=== PATIENT | male | born 1970 | race Hispanic/Latino ===

== ENCOUNTER 2022-12-30 18:10 | Inpatient (IN) | payer BC ==
[2022-12-30 19:15] LABS: Critical Call w/ Read Back NUR.DP6; Hemoglobin 3.6 g/dL (14.0-18.0); Mean Corpuscular HGB CONC 32.3 g/dL (32.0-36.0); Mean Corpuscular Hemoglobin 33.6 pg (27.0-31.0); Mean Platelet Volume 6.9 fL (7.4-10.4); Platelet Count 139 10x3/uL (130-400); RBC Distribution Width 17.3 % (11.5-14.5); Red Blood Cell (RBC) Count 1.07 mill/uL (4.70-6.10); Reflex for Review?? YES; White Blood Cell (WBC) Count 13.2 10x3/uL (4.8-10.8)
[2022-12-30 19:17] LABS: #Lymphocytes 0.9 thou/uL (1.20-3.40); #Neutrophils 11.3 thou/uL (1.40-6.50); %Eosinophils 0.4 % (0.0-10.0); %Lymphocytes 6.9 % (21.0-51.0); %Monocytes 7.4 % (0.0-10.0); %Neutrophils 85.4 % (42.0-75.0)
[2022-12-30 19:25] LABS: ALT (SGPT) 13 U/L (8-55); AST (SGOT) 15 U/L (5-34); Albumin 3.3 g/dL (3.5-5.0); Alkaline Phosphatase 107 U/L (40-110); Anion Gap 13 mmol/L (10-20); BUN (Urea Nitrogen) 40 mg/dL (8.4-25.7); Bilirubin, Total 0.2 mg/dL (0.2-1.2); Calc. Creatinine Clearance 0 mL/min (70-130); Calcium 7.9 mg/dL (7.8-10.44); Carbon Dioxide 23 mmol/L (22-29); Chloride 106 mmol/L (98-107); Estimated GFR 100; Globulin 2.6 g/dL (2.4-3.5); Glucose 169 mg/dL (70-105); Potassium 4.6 mmol/L (3.5-5.1); Protein, Total 5.9 g/dL (6.0-8.3); Sodium 137 mmol/L (136-145)
[2022-12-30 19:28] LABS: MDiff Complete? YES; Macrocytosis SLIGHT = 6-15 cells (100X) (0-5/hpf); Ovalocytes SLIGHT = 2-5 cells (100X) (0-1/hpf); Platelet Morphology Comment Appears Adequate; Polychromasia SLIGHT = 2-3 cells (100X) (0-2/hpf)
[2022-12-30] MEDS ORDERED: Morphine 4 MG/ML VIAL ONE (19:58)
[2022-12-30 20:30] LABS: INR-International Normal Ratio 1.1; Prothrombin Time 14.9 sec (12.0-14.7)
[2022-12-30 20:31] LABS: PTT 30.3 sec (22.9-36.1)
[2022-12-30] MEDS ORDERED: hydrALAZINE 20 MG/ML VIAL SLOW IVP PRN (20:33)
[2022-12-30] MEDS ORDERED: Dextrose 50% Abboject 50 ML SYRINGE SLOW IVP PRN (20:33)
[2022-12-30] MEDS ORDERED: TETANUS, DIPHTHERIA TOX,ADULT (TDVAX) 0.5 ML VIAL IM ONE (20:33)
[2022-12-30] MEDS ORDERED: Dextrose 5% in Water 1,000 ML IV PRN (20:33)
[2022-12-30] MEDS ORDERED: Ondansetron PF 4 MG/2 ML Vial IVP PRN (20:33)
[2022-12-30 20:35] LABS: Magnesium 1.8 mg/dL (1.6-2.6)
[2022-12-30 20:39] LABS: #Lymphocytes 0.9 thou/uL (1.20-3.40); #Monocytes 0.8 thou/uL (0.11-0.59); #Neutrophils 13.8 thou/uL (1.40-6.50); %Eosinophils 0.2 % (0.0-10.0); %Lymphocytes 5.6 % (21.0-51.0); %Monocytes 5.3 % (0.0-10.0); %Neutrophils 88.9 % (42.0-75.0); Hemoglobin 3.9 g/dL (14.0-18.0); Mean Corpuscular HGB CONC 32.1 g/dL (32.0-36.0); Mean Corpuscular Hemoglobin 33.5 pg (27.0-31.0); Platelet Count 164 10x3/uL (130-400); RBC Distribution Width 17.4 % (11.5-14.5); Red Blood Cell (RBC) Count 1.15 mill/uL (4.70-6.10); White Blood Cell (WBC) Count 15.5 10x3/uL (4.8-10.8)
[2022-12-30] MEDS ORDERED: Sodium Phosphate 15 MMOL in Sodium Chloride 0.9% 250 ML 250 ML IVPB SCH (20:45)
[2022-12-30] MEDS ORDERED: Magnesium 2 GM/50 ML(in water) 2 GM in Premix Bag 1 BAG IVPB SCH (20:45)
[2022-12-30] MEDS ORDERED: Pantoprazole 80 MG in Sodium Chloride 0.9% 100 ML IVPB SCH (20:45)
[2022-12-31] MEDS ORDERED: Magnesium 2 GM/50 ML BAG (IN WATER) ONE (00:07)
[2022-12-31] MEDS ORDERED: Boostrix 0.5 ML (Tdap) VIAL (>/=7 yrs of age) ONE (00:13)
[2022-12-31] MEDS: Sodium Chloride 0.9% 1,000 ML IV SCH ×4 (00:33→21:17)
[2022-12-31] MEDS ORDERED: Pantoprazole 80 MG in Sodium Chloride 0.9% 100 ML IVPB SCH (00:45)
[2022-12-31 01:49] LABS: #Lymphocytes 0.9 thou/uL (1.20-3.40); #Monocytes 1.1 thou/uL (0.11-0.59); #Neutrophils 13.3 thou/uL (1.40-6.50); %Basophils 0.1 % (0.0-1.0); %Eosinophils 0.1 % (0.0-10.0); %Lymphocytes 5.7 % (21.0-51.0); %Monocytes 7.3 % (0.0-10.0); %Neutrophils 86.8 % (42.0-75.0); Hemoglobin 5.9 g/dL (14.0-18.0); Mean Corpuscular HGB CONC 33.5 g/dL (32.0-36.0); Mean Corpuscular Hemoglobin 32.8 pg (27.0-31.0); Mean Corpuscular Volume 97.9 fl (78.0-98.0); Platelet Count 123 10x3/uL (130-400); RBC Distribution Width 15.9 % (11.5-14.5); Red Blood Cell (RBC) Count 1.79 mill/uL (4.70-6.10); White Blood Cell (WBC) Count 15.3 10x3/uL (4.8-10.8)
[2022-12-31 06:12] LABS: Amphetamine Not Detected (NotDetected); Barbiturates Screen Not Detected (NotDetected); Benzodiazepine Screen Not Detected (NotDetected); Cocaine Metabolite Screen Not Detected (NotDetected); Methadone Not Detected (NotDetected); Methamphetamine Not Detected (NotDetected); Opiate Screen Detected (NotDetected); Oxycodone Screen Not Detected (NotDetected); Phencyclidine (PCP) Not Detected (NotDetected); THC/Cannabinoid Screen Not Detected (NotDetected); Tricyclic Screen Not Detected (NotDetected)
[2022-12-31] MEDS: Fentanyl 100 MCG/2 ML VIAL SLOW IVP PRN ×2 (07:25→20:43)
[2022-12-31 07:47] LABS: Anion Gap 12 mmol/L (10-20); BUN (Urea Nitrogen) 34 mg/dL (8.4-25.7); Calc. Creatinine Clearance 134 mL/min (70-130); Calcium 7.6 mg/dL (7.8-10.44); Carbon Dioxide 21 mmol/L (22-29); Chloride 108 mmol/L (98-107); Estimated GFR 107; Glucose 123 mg/dL (70-105); Magnesium 2.1 mg/dL (1.6-2.6); Phosphorus 3.6 mg/dL (2.3-4.7); Sodium 137 mmol/L (136-145)
[2022-12-31 08:34] LABS: #Lymphocytes 0.9 thou/uL (1.20-3.40); #Monocytes 1.1 thou/uL (0.11-0.59); #Neutrophils 12.9 thou/uL (1.40-6.50); %Basophils 0.1 % (0.0-1.0); %Eosinophils 0.2 % (0.0-10.0); %Lymphocytes 6.3 % (21.0-51.0); %Monocytes 7.5 % (0.0-10.0); Hemoglobin 6.6 g/dL (14.0-18.0); Mean Corpuscular HGB CONC 33.8 g/dL (32.0-36.0); Mean Corpuscular Hemoglobin 32.4 pg (27.0-31.0); Mean Corpuscular Volume 95.9 fl (78.0-98.0); Mean Platelet Volume 7.1 fL (7.4-10.4); Platelet Count 118 10x3/uL (130-400); RBC Distribution Width 15.9 % (11.5-14.5); Red Blood Cell (RBC) Count 2.04 mill/uL (4.70-6.10)
[2022-12-31] MEDS ORDERED: PROPOFOL 200 MG/20 ML VIAL ONE (12:50)
[2022-12-31] MEDS ORDERED: Fentanyl 100 MCG/2 ML VIAL ONE (13:28)
[2022-12-31 15:22] LABS: Hemoglobin 7.7 g/dL (14.0-18.0); Mean Corpuscular HGB CONC 34.8 g/dL (32.0-36.0); Mean Corpuscular Hemoglobin 32.7 pg (27.0-31.0); Mean Corpuscular Volume 93.8 fl (78.0-98.0); Mean Platelet Volume 7.1 fL (7.4-10.4); Platelet Count 120 10x3/uL (130-400); Red Blood Cell (RBC) Count 2.37 mill/uL (4.70-6.10); White Blood Cell (WBC) Count 12.6 10x3/uL (4.8-10.8)
[2022-12-31] MEDS: Pantoprazole 40 MG VIAL IVP SCH (20:43)
[2023-01-01 03:48] LABS: #Eosinphils 0.1 thou/uL (0.0-0.7); #Lymphocytes 0.8 thou/uL (1.20-3.40); #Neutrophils 14.4 thou/uL (1.40-6.50); %Basophils 0.1 % (0.0-1.0); %Eosinophils 0.4 % (0.0-10.0); %Lymphocytes 4.8 % (21.0-51.0); %Monocytes 6.1 % (0.0-10.0); %Neutrophils 88.6 % (42.0-75.0); Hemoglobin 7.8 g/dL (14.0-18.0); Mean Corpuscular HGB CONC 35.3 g/dL (32.0-36.0); Mean Corpuscular Hemoglobin 33.3 pg (27.0-31.0); Mean Corpuscular Volume 94.5 fl (78.0-98.0); Mean Platelet Volume 7.1 fL (7.4-10.4); Platelet Count 112 10x3/uL (130-400); RBC Distribution Width 17.6 % (11.5-14.5); Red Blood Cell (RBC) Count 2.34 mill/uL (4.70-6.10); White Blood Cell (WBC) Count 16.3 10x3/uL (4.8-10.8)
[2023-01-01 04:18] LABS: Anion Gap 11 mmol/L (10-20); BUN (Urea Nitrogen) 19 mg/dL (8.4-25.7); Calc. Creatinine Clearance 151 mL/min (70-130); Calcium 7.6 mg/dL (7.8-10.44); Carbon Dioxide 22 mmol/L (22-29); Chloride 108 mmol/L (98-107); Estimated GFR 111; Glucose 120 mg/dL (70-105); Magnesium 1.8 mg/dL (1.6-2.6); Phosphorus 2.8 mg/dL (2.3-4.7); Potassium 3.9 mmol/L (3.5-5.1); Sodium 137 mmol/L (136-145)
[2023-01-01 06:20] LABS: SARS-CoV-2 NAA Rapid Test DETECTED (NotDetected)
[2023-01-01] MEDS: Sodium Chloride 0.9% 1,000 ML IV SCH (07:00)
[2023-01-01] MEDS: Levothyroxine Sodium 25 MCG TAB PO SCH (07:02)
[2023-01-01] MEDS: Levothyroxine Sodium 100 MCG TAB PO SCH (07:02)
[2023-01-01] MEDS ORDERED: Magnesium 2 GM/50 ML(in water) 2 GM in Premix Bag 1 BAG IVPB SCH (07:15)
[2023-01-01] MEDS: Fentanyl 100 MCG/2 ML VIAL SLOW IVP PRN (07:33)
[2023-01-01 07:50] VITALS: BMI 30.9
[2023-01-01] MEDS: Pantoprazole 40 MG VIAL IVP SCH ×2 (08:09→22:24)
[2023-01-01] MEDS: Ferrous Sulfate 325 MG TAB PO SCH ×2 (08:09→17:00)
[2023-01-01] MEDS: Ascorbic Acid 500 mg Chewable Tablet PO SCH ×2 (08:09→22:22)
[2023-01-01] MEDS ORDERED: Potassium Phosphate 30 MMOL, Magnesium Sulfate 2 GM in Sodium Chloride 0.9% 250 ML IVPB SCH (09:00)
[2023-01-01] MEDS ORDERED: Bupivacaine PF 0.5% 30 ML VIAL ONE (11:59)
[2023-01-01] MEDS ORDERED: Fentanyl 250 MCG/5 ML VIAL ONE (11:59)
[2023-01-01] MEDS ORDERED: Midazolam HCl 2 mg/2 ml Vial ONE (11:59)
[2023-01-01] MEDS ORDERED: Dexamethasone 4 mg/ml Vial ONE (12:00)
[2023-01-01] MEDS ORDERED: CEFAZOLIN 2 GM in Sodium Chloride 0.9% 100 ML IVPB SCH (12:30)
[2023-01-01] MEDS ORDERED: fentaNYL PF 100 MCG/2 ML SYRINGE ONE ×2 (14:22→17:25)
[2023-01-01] MEDS ORDERED: Rocuronium Bromide 10 MG/ML (10ML VIAL) ONE (14:58)
[2023-01-01] MEDS ORDERED: PROPOFOL 200 MG/20 ML VIAL ONE (14:58)
[2023-01-01] MEDS ORDERED: Glycopyrrolate 0.2 MG/ML 5 ML SYRINGE ONE (14:58)
[2023-01-01] MEDS ORDERED: PHENYLEPHRINE-NS 100 MCG/ML 10 ML SYRINGE ONE (14:58)
[2023-01-01] MEDS ORDERED: NEOSTIGMINE 3 MG/3 ML SYR 3 MG/3 ML SYRINGE ONE (14:58)
[2023-01-01] MEDS ORDERED: Morphine 4 MG/ML VIAL SLOW IVP PRN (20:04)
[2023-01-01] MEDS: Senokot S 8.6-50 MG TAB PO SCH (22:22)
[2023-01-01] MEDS: CEFAZOLIN 2 GM in Sodium Chloride 0.9% 100 ML IVPB SCH (22:22)
[2023-01-01] MEDS: traMADol HCl 50 MG TAB PO PRN (22:23)
[2023-01-01] MEDS: Acetaminophen 500 MG TAB PO SCH (22:23)
[2023-01-02] MEDS: Pantoprazole 40 MG VIAL IVP SCH ×3 (01:12→21:39)
[2023-01-02] MEDS: Sodium Chloride 0.9% 1,000 ML IV SCH (01:13)
[2023-01-02] MEDS: Acetaminophen 500 MG TAB PO SCH ×4 (03:37→21:30)
[2023-01-02] MEDS: Cyclobenzaprine 10 MG TAB PO PRN ×2 (03:38→09:36)
[2023-01-02] MEDS: Levothyroxine Sodium 100 MCG TAB PO SCH (05:15)
[2023-01-02] MEDS: traMADol HCl 50 MG TAB PO PRN (05:16)
[2023-01-02] MEDS: Levothyroxine Sodium 25 MCG TAB PO SCH (05:16)
[2023-01-02] MEDS: CEFAZOLIN 2 GM in Sodium Chloride 0.9% 100 ML IVPB SCH ×2 (05:17→14:54)
[2023-01-02 06:24] LABS: #Eosinphils 0.1 thou/uL (0.0-0.7); #Lymphocytes 0.7 thou/uL (1.20-3.40); %Eosinophils 0.5 % (0.0-10.0); %Lymphocytes 3.6 % (21.0-51.0); %Monocytes 5.1 % (0.0-10.0); %Neutrophils 90.7 % (42.0-75.0); Hemoglobin 7.2 g/dL (14.0-18.0); Mean Corpuscular HGB CONC 31.9 g/dL (32.0-36.0); Mean Corpuscular Hemoglobin 30.8 pg (27.0-31.0); Mean Corpuscular Volume 96.3 fl (78.0-98.0); Mean Platelet Volume 7.8 fL (7.4-10.4); Platelet Count 126 10x3/uL (130-400); RBC Distribution Width 17.5 % (11.5-14.5); Red Blood Cell (RBC) Count 2.33 mill/uL (4.70-6.10); White Blood Cell (WBC) Count 18.7 10x3/uL (4.8-10.8)
[2023-01-02 06:51] LABS: Anion Gap 11 mmol/L (10-20); BUN (Urea Nitrogen) 12 mg/dL (8.4-25.7); Calcium 7.6 mg/dL (7.8-10.44); Carbon Dioxide 24 mmol/L (22-29); Chloride 102 mmol/L (98-107); Glucose 111 mg/dL (70-105); Magnesium 1.8 mg/dL (1.6-2.6); Potassium 3.9 mmol/L (3.5-5.1); Sodium 133 mmol/L (136-145)
[2023-01-02 07:02] LABS: Calc. Creatinine Clearance 153 mL/min (70-130); Estimated GFR 111
[2023-01-02] MEDS: Ascorbic Acid 500 mg Chewable Tablet PO SCH ×2 (08:37→21:30)
[2023-01-02] MEDS: Ferrous Sulfate 325 MG TAB PO SCH ×2 (08:37→17:10)
[2023-01-02] MEDS: Senokot S 8.6-50 MG TAB PO SCH ×2 (08:37→21:30)
[2023-01-02] MEDS: Polyethylene Glycol 3350 17 GM Packet PO SCH (08:49)
[2023-01-02] MEDS: Aspirin 81 mg Enteric Coated Tablet PO SCH ×2 (08:49→21:30)
[2023-01-02] MEDS: Insulin Regular 300 UNITS/3 ML VIAL SC PRN ×2 (12:04→18:16)
[2023-01-03] MEDS: Acetaminophen 500 MG TAB PO SCH ×4 (03:04→20:34)
[2023-01-03] MEDS ORDERED: FLU VACC QS2022-23(6MOS UP)/PF 60 MCG/0.5 ML SYRINGE IM ONE (03:45)
[2023-01-03] MEDS: Levothyroxine Sodium 25 MCG TAB PO SCH (05:32)
[2023-01-03] MEDS: Levothyroxine Sodium 100 MCG TAB PO SCH (05:32)
[2023-01-03 06:12] LABS: #Eosinphils 0.1 thou/uL (0.0-0.7); #Lymphocytes 0.8 thou/uL (1.20-3.40); #Monocytes 0.8 thou/uL (0.11-0.59); #Neutrophils 12.4 thou/uL (1.40-6.50); %Basophils 0.1 % (0.0-1.0); %Eosinophils 0.9 % (0.0-10.0); %Lymphocytes 5.7 % (21.0-51.0); %Monocytes 5.4 % (0.0-10.0); Hemoglobin 6.7 g/dL (14.0-18.0); Mean Corpuscular HGB CONC 32.6 g/dL (32.0-36.0); Mean Corpuscular Hemoglobin 31.7 pg (27.0-31.0); Mean Corpuscular Volume 97.1 fl (78.0-98.0); Mean Platelet Volume 7.5 fL (7.4-10.4); Platelet Count 162 10x3/uL (130-400); Red Blood Cell (RBC) Count 2.11 mill/uL (4.70-6.10); White Blood Cell (WBC) Count 14.1 10x3/uL (4.8-10.8)
[2023-01-03 07:52] LABS: Hemoglobin 7.1 g/dL (14.0-18.0)
[2023-01-03] MEDS: traMADol HCl 50 MG TAB PO PRN ×3 (09:13→21:25)
[2023-01-03] MEDS: Pantoprazole 40 MG VIAL IVP SCH ×2 (09:14→20:34)
[2023-01-03] MEDS: Ascorbic Acid 500 mg Chewable Tablet PO SCH ×2 (09:15→20:34)
[2023-01-03] MEDS: Aspirin 81 mg Enteric Coated Tablet PO SCH ×2 (09:16→20:34)
[2023-01-03] MEDS: Ferrous Sulfate 325 MG TAB PO SCH ×2 (09:16→18:03)
[2023-01-03] MEDS: Senokot S 8.6-50 MG TAB PO SCH ×2 (09:16→20:35)
[2023-01-03] MEDS: Polyethylene Glycol 3350 17 GM Packet PO SCH (09:16)
[2023-01-03] MEDS: Insulin Regular 300 UNITS/3 ML VIAL SC PRN (12:32)
[2023-01-04] MEDS: Acetaminophen 500 MG TAB PO SCH ×4 (03:06→20:57)
[2023-01-04] MEDS: Levothyroxine Sodium 25 MCG TAB PO SCH (05:03)
[2023-01-04] MEDS: Levothyroxine Sodium 100 MCG TAB PO SCH (05:03)
[2023-01-04 06:54] LABS: Hemoglobin 6.8 g/dL (14.0-18.0)
[2023-01-04] MEDS: Ferrous Sulfate 325 MG TAB PO SCH ×2 (08:42→17:39)
[2023-01-04] MEDS: Senokot S 8.6-50 MG TAB PO SCH ×2 (08:42→20:50)
[2023-01-04] MEDS: Aspirin 81 mg Enteric Coated Tablet PO SCH ×2 (08:42→20:50)
[2023-01-04] MEDS: Pantoprazole 40 MG VIAL IVP SCH ×2 (08:43→20:51)
[2023-01-04] MEDS: Polyethylene Glycol 3350 17 GM Packet PO SCH (08:43)
[2023-01-04] MEDS: Ascorbic Acid 500 mg Chewable Tablet PO SCH ×2 (08:43→20:51)
[2023-01-04] MEDS: traMADol HCl 50 MG TAB PO PRN ×2 (09:10→14:41)
[2023-01-04] MEDS: Cyclobenzaprine 10 MG TAB PO PRN (17:41)
[2023-01-05] MEDS: Acetaminophen 500 MG TAB PO SCH ×4 (06:11→19:59)
[2023-01-05] MEDS: Levothyroxine Sodium 100 MCG TAB PO SCH (06:26)
[2023-01-05] MEDS: Levothyroxine Sodium 25 MCG TAB PO SCH (06:27)
[2023-01-05] MEDS: Aspirin 81 mg Enteric Coated Tablet PO SCH ×2 (08:06→20:00)
[2023-01-05] MEDS: Ferrous Sulfate 325 MG TAB PO SCH ×2 (08:06→17:48)
[2023-01-05] MEDS: traMADol HCl 50 MG TAB PO PRN ×2 (08:07→17:48)
[2023-01-05] MEDS: Ascorbic Acid 500 mg Chewable Tablet PO SCH ×2 (08:07→20:00)
[2023-01-05] MEDS: Senokot S 8.6-50 MG TAB PO SCH ×2 (08:08→20:00)
[2023-01-05] MEDS: Polyethylene Glycol 3350 17 GM Packet PO SCH (08:08)
[2023-01-05] MEDS: Pantoprazole 40 MG VIAL IVP SCH ×2 (08:08→20:00)
[2023-01-05] MEDS: Cyclobenzaprine 10 MG TAB PO PRN (15:04)
[2023-01-05 20:07] VITALS: BP 121/75; TEMP 98.5
== END 2023-01-05 20:50 | DRG 480 ==
LOC: ERS 18:10 → ERHOLD 20:37 → CCU 12-31 01:43 → SURG B 01-01 17:29
PROVIDERS: ADMIT Surgery; ATTEND Surgery
PROC: 30233N1 Transfusion of Nonautologous Red Blood Cells into Peripheral Vein, Percutaneous Approach (ICD-10-PCS; 2022-12-30)
PROC: 0W3P8ZZ Control Bleeding in Gastrointestinal Tract, Via Natural or Artificial Opening Endoscopic (ICD-10-PCS; 2022-12-31)
PROC: 0DB48ZX Excision of Esophagogastric Junction, Via Natural or Artificial Opening Endoscopic, Diagnostic (ICD-10-PCS; 2022-12-31)
PROC: 0QS704Z Reposition Left Upper Femur with Internal Fixation Device, Open Approach (ICD-10-PCS; principal; 2023-01-01)
PROC: 8E0ZXY6 Isolation (ICD-10-PCS; 2023-01-01)
DX: S72.142A Displaced intertrochanteric fracture of left femur, initial encounter for closed fracture (principal); Z20.822 Contact with and (suspected) exposure to COVID-19; Z23 Encounter for immunization; K22.11 Ulcer of esophagus with bleeding; U07.1 COVID-19; D62 Acute posthemorrhagic anemia; C15.5 Malignant neoplasm of lower third of esophagus; I10 Essential (primary) hypertension; E11.9 Type 2 diabetes mellitus without complications; R29.6 Repeated falls; W18.30XA Fall on same level, unspecified, initial encounter; Z91.81 History of falling; Z79.899 Other long term (current) drug therapy; Z79.890 Hormone replacement therapy
CPT/HCPCS: 36415; 36416; 36430; 71045; 80048; 80053; 80306; 80307; 83735; 84100; 85014; 85018; 85025; 85060; 85610; 85730; 86850; 86900; 86901; 88305; 90471; 90686; 90714; 90715; 93005; 96365; 96375; C1713; C9113; G0008; G0390; J1100; J1815; J2250; J2270; J2704; J3010; J3475; J3490; J7030; J7050; P9016; S0020; U0002